=== PATIENT | male | born 1960 | race Caucasian/White ===

== ENCOUNTER 2021-07-07 10:22 | Emergency (ER) | payer SELFPAY ==
[~2021-07-07] VITALS: Ht 177.8 cm; Wt 98.0 kg
[2021-07-07 12:45] VITALS: BP 127/79
--- NOTE | 2021-07-07 12:57 | PHYS DOC ---
General Adult EDM: Chief Complaint: FLU SYMPTOM HPI: HPI: Patient is a 61 year old male who does not regularly seek medical attention who presents with cough, sore throat, earache, intermittent headaches for the past month. He thought was potentially due to a bleach exposure at work at that time. But leahy s not improved. In the last 2 weeks his is gotten sick with similar symptoms. He has been dosing himself with high-dose vitamin C, and leftover prednisone from a previous prescription. His cough has been largely nonproductive. A few occasions of yellow phlegm. No chest pain. No lower extremity edema. Denies shortness of breath. Review of Systems: Review of Systems: Constitutional: Denies fever or chills. [] Eyes: Denies change in visual acuity. [] HENT: Reports sore throat and right ear discomfort. [] Respiratory: Reports cough. Denies shortness of breath. [] Cardiovascular: Denies chest pain or edema. [] GI: Denies abdominal pain, nausea, vomiting, bloody stools or diarrhea. [] : Denies dysuria. [] Musculoskeletal: Denies back pain or joint pain. [] Integument: Denies rash. [] Neurologic: Reports occasional headaches. no focal weakness or sensory changes. [] Endocrine: Denies polyuria or polydipsia. [] Lymphatic: Denies swollen glands. [] Psychiatric: Denies depression or anxiety. [] Heart Score: C/O Chest Pain: No Risk Factors: Risk Factors: DM, Current or recent (<one month) smoker, HTN, HLP, family history of CAD, obesity. Risk Scores: Score 0 - 3: 2.5% MACE over next 6 weeks - Discharge Home Score 4 - 6: 20.3% MACE over next 6 weeks - Admit for Clinical Observation Score 7 - 10: 72.7% MACE over next 6 weeks - Early Invasive Strategies Physical Exam: PE: Constitutional: Well developed, well nourished, no acute distress, non-toxic appearance. [] HENT: Normocephalic, atraumatic, bilateral external ears normal, oropharynx moist, no oral exudates, nose normal. [] Eyes: PERRLA, EOMI, conjunctiva normal, no discharge. [] Neck: Normal range of motion, no tenderness, supple, no stridor. [] Cardiovascular:Heart rate regular rhythm, no murmur [] Lungs & Thorax: Crackles in the bases. Normal work of breathing. Satting 95% on room air [] Abdomen: Bowel sounds normal, soft, no tenderness, no masses, no pulsatile masses. [] Skin: Warm, dry, no erythema, no rash. [] Back: No tenderness, no CVA tenderness. [] Extremities: No tenderness, no cyanosis, no clubbing, ROM intact, no edema. [] Neurologic: Alert and oriented X 3, normal motor function, normal sensory function, no focal deficits noted. [] Psychologic: Affect normal, judgement normal, mood normal. [] EKG: EKG: [] Radiology/Procedures: Radiology/Procedures: [] Impression: [facility] [address] [place] [address] IMAGING REPORT Signed PATIENT: DARLINE HUANG ACCOUNT: [id number] : 1960 LOCATION: ER AGE: 61 SEX: M EXAM STATUS: REG ER ORD. PHYSICIAN: HALEIGH PARRA MD REASON: sob, covid sx PROCEDURE: CHEST AP ONLY XR CHEST 1V History: Shortness of breath, Covid. Comparison: None. Technique: Portable AP radiograph of the chest. Findings: The lungs are adequately inflated. There are patchy bilateral airspace opacities. No pleural effusion or pneumothorax. Osseous structures and soft tissues are unremarkable. Cardiomediastinal silhouette and pulmonary vasculature are within normal limits. Impression: 1. Patchy bilateral airspace opacities concerning for Covid pneumonia. Electronically signed by: Geraldo Boggs MD (07/07/2021 1:10 PM) [id number] DICTATED and SIGNED BY: GERALDO BOGGS MD DATE: 07/07/21 [id number] 0 Course & Med Decision Making: Course & Med Decision Making Pertinent Labs and Imaging studies reviewed. (See chart for details) Patient 61-year-old male who presents with cough, sore throat, headaches for the past month. On arrival is afebrile, hemodynamically stable. Satting 95% on room air with normal work of breathing. Exam has bilateral crackles. His is also here in the emergency department and is hypoxic with now confirmed COVID 19 infection. Covid swab and CXR ordered. He is otherwise doing well, do not feel that labs would be needed. No chest pain or shortness of breath to suggest need for EKG. 1257 Chest x-ray consistent with COVID-19 pneumonia. Fortunately is not hypoxic. Do not feel he requires hospitalization. Will be discharged with COVID-19 PCR test pending. Isolation precautions reviewed. 1324 [employer] Disclaimer: Konstantin Disclaimer: This electronic medical record was generated, in whole or in part, using a voice recognition dictation system. Departure Departure Impression: Primary Impression: Cough Additional Impression: Suspected COVID-19 virus infection Disposition: HOME / SELF CARE / HOMELESS Condition: STABLE Referrals: NO PCP (PCP) Additional Instructions: Since you do not have a PCP, please call the number for the [facility] at [phone]. Your chest x-ray is concerning that you may have a COVID-19 infection. We are sending off swabs to determine whether you were positive for Covid. Until you know the results of your swab please self isolate, and do not go to work. Do not be around others. If you absolutely have to be out please wear a mask and limit your time to the absolute minimum possible. You should self isolate for at least 10 days if your swab returns positive. Please return to the emergency department for reevaluation if you develop chest pain or shortness of breath. HALEIGH PARRA MD Jul 07, 2021 12:57
--- NOTE | 2021-07-07 13:13 | RAD ---
XR CHEST 1V History: Shortness of breath, Covid. Comparison: None. Technique: Portable AP radiograph of the chest. Findings: The lungs are adequately inflated. There are patchy bilateral airspace opacities. No pleural effusion or pneumothorax. Osseous structures and soft tissues are unremarkable. Cardiomediastinal silhouette and pulmonary vasculature are within normal limits. Impression: 1. Patchy bilateral airspace opacities concerning for Covid pneumonia. Electronically signed by: Geraldo Emanuel MD (07/07/2021 1:10 PM) [id number]
== END 2021-07-07 14:34 | disposition home or self-care (01) ==
LOC: ER 10:22
DX: U07.1 COVID-19 (principal); R05 Cough
CPT/HCPCS: 71045; 87426; 99284